=== PATIENT | female | born 1975 | race Caucasian/White ===

== ENCOUNTER 2023-09-09 11:42 | Emergency (ER) | payer MEDICAID, SELFPAY ==
--- NOTE | ~2023-09-09 | XR_ITS ---
EXAMINATION: XR TIBIA AND FIBULA, LEFT CLINICAL INFORMATION: Pain following a fall. COMPARISON: None available. TECHNIQUE: AP and lateral views of the left tibia and fibula were obtained. FINDINGS: No acute fracture or dislocation. No joint space or marginal osteophytes. No osseous erosion or periosteal reaction. Circumferential subcutaneous edema. XR/XR tibia fibula LT 2V IMPRESSION: Circumferential subcutaneous edema without acute osseous abnormality.
[2023-09-09 11:46] VITALS: BP 128/67; PULSE 95; O2SAT 100
--- NOTE | 2023-09-09 11:46 | ED.GENADULT ---
HPI - General Adult General Chief complaint: Extremity Injury, Lower Stated complaint: FALL DOWN 3 STEPS T-1,R LEG PAIN PER EMS Time Seen by Provider: 09/09/23 14:34 Source: patient and EMS Mode of arrival: EMS Limitations: no limitations History of Present Illness HPI narrative: Patient is a 48 year old assigned female at with no reported medical history presenting to the emergency department today with left lower leg pain. Patient states that she fell down some stairs yesterday and ever since, her left leg has been bothering her. Patient denies any head strike, loss of consciousness, dizziness, lightheadedness, abdominal pain, nausea, vomiting, fever, chills, blurry vision, double vision, loss of vision, chest pain, difficulty breathing, shortness of breath, back pain, night sweats, pain with urination, increased urinary frequency, increased urinary urgency, blood in her urine or stool, syncope or a near syncopal episode, bowel incontinence, bladder incontinence, bowel retention, bladder retention, or any other complaints at this time. Onset (ago): day(s) (1) Location: left and lower extremity Severity: mild Severity scale (1-10): 4 Quality: aching and dull Pain Consistency: constant Relieving factors: none Exacerbating factors: movement and other (walking) Associated symptoms: denies other symptoms Treatments prior to arrival: none Related Data Allergies Allergy/AdvReac Type Severity Reaction Status Date / Time metoclopramide [From Reglan] Allergy Unknown Verified 09/09/23 12:22 Review of Systems Constitutional: Constitutional: Reports no additional constitutional complaints, Denies chills, Denies fever(s) and Denies night sweats Eyes: Eyes: Reports no additional eye complaints, Denies blurry vision, Denies change in vision, Denies diplopia, Denies eye discharge, Denies loss of vision and Denies eye pain ENT: Denies dizziness Cardiovascular: Cardiovascular: Reports no additional cardiovascular complaints, Denies chest pain, Denies lightheadedness, Denies Loss of Consciousness and Denies dyspnea Respiratory: Respiratory: Reports no additional respiratory complaints and Denies dyspnea Gastrointestinal: Gastrointestinal: Reports no additional gastrointestinal complaints, Denies abdominal pain, Denies melena, Denies hematochezia, Denies change in bowel habits and Denies change in stool character Genitourinary: Genitourinary: Denies hematuria, Denies urinary frequency, Denies dysuria, Denies urinary incontinence, Denies urinary hesitancy and Denies urinary urgency Musculoskeletal: Musculoskeletal: Reports no additional musculoskeletal complaints, Denies numbness and Denies tingling Comments: left lower leg pain and swelling Neurologic: Denies dizziness, Denies loss of vision, Denies numbness and Denies tingling Psychiatric: Psychiatric: Reports no additional psychiatric complaints Endocrine: Endocrine: Reports no additional endocrine complaints Hematologic/Lymphatic: Hematologic/Lymphatic: Reports no additional hematologic/lymphatic complaints Allergic/Immunologic: Allergic/Immunologic: Reports no additional allergic/immunologic complaints [facility] Past Medical History Attestation statement: The following information was validated with the patient. Source: old records reviewed and nursing notes reviewed Social History Social History Advance Directives: No Advance Directives Information Provided: No Physical Exam ED Vital Signs: Vital Signs - 24 hr 09/09/23 12:22 09/09/23 14:00 09/09/23 16:10 Temperature 98.1 F 98.2 F 98.2 F Pulse Rate 99 98 98 Respiratory Rate 16 16 Blood Pressure 142/74 H 147/73 H 147/73 H Pulse Oximetry 100 99 99 Oxygen Delivery Method Room Air Room Air Room Air BMI result Body Mass Index 30.2 Const General: cooperative, no acute distress, alert and awake Nutritional Appearance: well nourished Orientation/consciousness: patient oriented x3 Limitations: no limitations [facility] Head: Yes normal to inspection and Yes atraumatic Ears: hearing grossly normal bilaterally and external ears normal General nose exam: Normal external nose present, no nasal discharge noted and no epistaxis Face and sinus: Yes normal facial exam, No abrasion and No laceration Mouth: Normal oral and palatal mucosa present, no drooling and no muffled voice Eyes General: appearance normal, both eyes and all related structures Periorbital: periorbital findings normal Eyelids: Yes eyelids normal Conjunctivae: conjunctivae normal Pupils: Equal, round and reactive pupils present EOM: EOMs intact bilaterally Neck Neck: Yes normal visual inspection, Yes full ROM and Yes no lymphadenopathy Chest Chest palpation & inspection: normal inspection of the chest Resp Effort & Inspection: normal respiratory effort and able to speak in complete sentences GI Inspection: Yes normal to inspection Neuro General: patient oriented x3 and moves all extremities Cranial nerves: Yes Equal, round and reactive pupils present Cognition (Neuro): normal cognition Motor exam (neuro): 5/5 motor strength present throughout Sensory Exam: Normal double simultaneous stimulation for sensation Coordination: [id number] test normal Extrem Other: mild erythema present to the left lower leg and pain with palpation present of the left lower leg General: Yes full ROM and Yes capillary refill normal Psych Appearance: grossly normal Mental Status: mental status grossly normal Affect: normal affect Attitude: cooperative Thought process: Normal thought process present Thought content: Normal thought content present Insight: Good insight present (Psych) Course Course Course Narrative: This is a rapid medical exam performed by Ortiz Ely NP: Additional HPI, ROS, PE not included below will be deferred to primary provider. Patient is a 48-year-old female presenting to the ED with complaint of left leg pain since yesterday. States she fell down 3 steps running from a bee yesterday. Pain to lower leg, worse with ambulating. Plan: xray Medications Administered Discontinued Medications Generic Name Dose Route Start Last Admin Trade Name Donita PRN Reason Stop Dose Admin Oxycodone HCl 5 mg 09/09/23 15:37 09/09/23 15:50 Oxycodone Hcl Immed Release 5 Mg Tablet PO 09/09/23 15:38 5 mg ONCE ONE Administration Procedures Orthopedic Splinting/Casting Injury #1: Side: left Lower Extremity Injury Location: lower leg Lower Extremity Immobilizer: boot orthosis Other Orthopedic Equipment: crutches Medical Decision Making Medical Decision Making MDM Narrative: Patient is a 48 year old assigned female at with no reported medical history presenting to the emergency department today with left lower leg pain after a fall. Patient's physical exam showed mild swelling to the left lower leg as well as pain with palpation. Patient stated that she could not remove the pants she was in to allow me further evaluation of the lower leg. Patient's left lower leg x-ray showed no acute rolanda process but did confirm soft tissue swelling. Patient's clinical presentation is most consistent with a lower leg contusion vs. sprain/strain. I explained my physical exam findings as well as all test results to the patient. I answered all questions asked by the patient. Patient received PO pain medication while in the department. Patient's left lower extremity was placed in a walking boot, to help ease the pain of putting pressure on it, and the patient was given crutches with crutch instructions. Patient's PMS was intact prior to and after boot placement. I stressed the importance of the patient taking her medication as prescribed. I stressed the importance of the patient following up with her primary care provider and if pain persists >1 week, an orthopedic provider. I stressed the importance of the patient returning to the emergency department immediately if her symptoms were to worsen or if she were to develop any dizziness, shortness of breath, difficulty breathing, chest pain, blurry vision, loss of vision, nausea, vomiting, abdominal pain, fever, chills, back pain, or any other complaints. Patient verbalized agreement and understanding with this treatment plan and discharge. Differential Diagnosis Differential Diagnoses: The differential diagnosis associated with the presentation includes Leg sprain Leg strain Leg contusion Tibia fracture Fibular fracture Admission/Observation Consideration of admission/observation: Escalation of care including admission/observation considered Patient would have been admitted to the hospital had her work up had any findings where hospital admission was appropriate and her clinical presentation warranted hospital admission. Independent Interpretation I performed an independent interpretation of an: Plain X-Ray Interpretation: My interpretation is in agreement with the radiologist's impression of this imaging study. EXAMINATION: XR TIBIA AND FIBULA, LEFT CLINICAL INFORMATION: Pain following a fall. COMPARISON: None available. TECHNIQUE: AP and lateral views of the left tibia and fibula were obtained. FINDINGS: No acute fracture or dislocation. No joint space or marginal osteophytes. No osseous erosion or periosteal reaction. Circumferential subcutaneous edema. XR/XR tibia fibula LT 2V IMPRESSION: Circumferential subcutaneous edema without acute osseous abnormality. Dictated By: Wesley Tsai MD Signed By: Electronically signed by Wesley Tsai MD 09/09/23 1344 Radiology Impression Discussion of test interpretation with radiology: I have reviewed the radiologist's reading. Independent Historian Clinical information obtained from an independent historian. History obtained from or confirmed by: EMS (EMS provided additional history and confirmed the history provided by the patient.) Tests considered The following testing was considered but not selected: A CT scan and an US of the left lower extremity were considered however, given the patient's clinical presentation and mechanism of injury, neither of these were warranted. I discussed this with the patient who verbalized understanding and agreement. Discharge Plan Discharge Clinical Impression: Acute leg pain, Sprain of knee/leg Patient Disposition: Home, Self-Care Instructions: Crutch Instructions (ED), Leg Pain (ED) Additional Instructions: Follow up with your primary care provider and an orthopedic doctor in 1 week if the pain is not improving. Return to the emergency department immediately if your symptoms worsen or if you develop any dizziness, shortness of breath, difficulty breathing, chest pain, blurry vision, loss of vision, nausea, vomiting, abdominal pain, fever, chills, back pain, or any other complaints. Referrals: [facility] [Provider Group] (Call to establish and follow up with an orthopedic provider if your symptoms do not resolve in 1 week. ) [facility] [Primary Care Provider] - Stand Alone Forms: Work/School Release Interventions: ED Discharge Assessment Last Done: 09/09/23 16:10 Discharge Date/Time: 09/09/23 16:10 Print Language: French
[2023-09-09 12:22] VITALS: BP 142/74; PULSE 99; RESP 16; TEMP 36.7; O2SAT 100; BMI 30.2
[2023-09-09 14:00] VITALS: BP 147/73; PULSE 98; TEMP 36.8; O2SAT 99
[2023-09-09] MEDS: oxyCODONE HCl Immed Release 5 MG TABLET PO (15:50)
[2023-09-09 16:10] VITALS: BP 147/73; PULSE 98; RESP 16; TEMP 36.8; O2SAT 99
== END 2023-09-09 16:10 | disposition home or self-care (01) ==
PROVIDERS: Emergency Provider Emergency Medicine
DX: S83.92XA Sprain of unspecified site of left knee, initial encounter (principal); X58.XXXA Exposure to other specified factors, initial encounter; Y93.9 Activity, unspecified; Y92.9 Unspecified place or not applicable; Y99.9 Unspecified external cause status; M79.662 Pain in left lower leg
CPT/HCPCS: 73590; 99283

== ENCOUNTER 2023-09-28 12:36 | Outpatient (REF) | payer MEDICAID, SELFPAY ==
--- NOTE | ~2023-09-28 | XR_ITS ---
EXAMINATION: XR KNEE, LEFT CLINICAL INFORMATION: Pain in left knee COMPARISON: None available. TECHNIQUE: AP standing view both knees, lateral and sunrise view of the left knee. FINDINGS: No fracture. Left joint effusion is noted. There is left lateral patellar tilt. Small quadriceps enthesophyte extends off the left patella. The medial and lateral joint compartments are well-maintained. Marginal osteophytes are seen along the medial and lateral joint compartments of the right knee. XR/XR knee LT 3V IMPRESSION: 1. Left joint effusion. 2. Left lateral patellar tilt.
== END 2023-09-28 12:37 | disposition home or self-care (01) ==
LOC: HO.HOSX 12:36
PROVIDERS: Visit Provider Physician Assistant
DX: M76.52 Patellar tendinitis, left knee (principal)
CPT/HCPCS: 73562; 99212

== ENCOUNTER 2023-09-28 13:20 | Outpatient (AMB) | payer MEDICAID, SELFPAY ==
--- NOTE | 2023-09-28 13:33 | A.OFFVIS_ITS ---
Vital Signs 09/28/23 13:46 Height 5 ft 4 in Weight 176 lb BMI 30.2 Intake Visit Reasons: N/P left Acute leg pain, Sprain of knee Intake Note: Gabriela a 48 year old female who presents today as a new patient for an evaluation of left leg pain, DOI 09/08/23. Patient reports she was running from a bee when she missed 3 steps landing her full weight on her left leg. She presented to [facility] the following day where she was placed in a walking boot. She d/c use of her boot due to extra discomfort after her swelling went down. Currently her pain is located near the medial aspect of knee. States with stair use she has to take one step out of time. Numbness and tingling in her toes. Finds no relief with Tylenol and Motrin. Allergies metoclopramide [From Reglan] Allergy (Verified 09/28/23 13:54) Unknown HPI HPI N/P left Acute leg pain, Sprain of knee: Details: 48-year-old female who presents to the office today for evaluation of acute left knee injury after she missed 3 steps and landed full weight on her left leg, 09/08/23. She was seen at ER the following day where she was placed in a walking boot that she discontinued due to extra discomfort after her swelling went down. She currently states she has burning sensation and pain at the medial aspect of her knee that radiates to her leg. Her pain is aggravated with extending, lifting and she has to take one step at a time with stair use. She also reports numbness and tingling in her toes. She denies any instability or knee giving out. She finds no relief with Tylenol and Motrin. [facility] Surgical History (Updated 09/28/23 @ 13:44 by DAVID Whaley) Hx of gastric bypass Social History (Updated 09/28/23 @ 13:44 by DAVID Whaley) Patient Tobacco Use Status: Current everyday Tobacco user Current occupational status: unemployed Review of Systems Const All systems reviewed & are unremarkable except as noted in HPI and below Physical Exam Vital Signs: BMI result Body Mass Index 30.2 Const General: cooperative, healthy appearing, comfortable, no acute distress, well developed and alert Orientation/consciousness: patient oriented x3 HEENT Head: Yes normal to inspection, Yes normocephalic and Yes atraumatic Eyes General: appearance normal, both eyes and all related structures Resp Effort & Inspection: normal respiratory effort and able to speak in complete sentences Cardio Rate: regular rate Peripheral pulses: Peripheral pulses 2+ throughout GI Palpation (GI): Soft to palpation Skin Lesions: no lesions Rashes: no rashes Neuro General: patient oriented x3 Extrem Other: Left knee: Skin intact, no erythema or joint effusion. Tenderness along the pes bursa and patellar tendon. Full ROM with crepitus. Negative Gricelda?s. No ligamentous laxity. NVI. Results Reviewed Results Reviewed: Xrays were obtained in the office today and personally reviewed by me of the left knee show lateralization of the patella. Assessment & Plan Assessment & Plan (1) Patellar tendinitis, left knee: Code(s): M76.52 - Patellar tendinitis, left knee Category: Medical Plan We discussed options which include PT, NSAIDs and injections. The patient will defer on the injection today and proceed with PT and NSAIDs. If symptoms pers ist, the patient will contact me for an injection, otherwise, PRN. Orders: Orders XR knee LT 3V Today M25.562 - Pain in left knee Medications: New ibuprofen 800 mg PO Q8H PRN 90 tabs 3RF pain 30 days S52.209D - Unspecified fracture of shaft of unspecified ulna, subsequent encounter for closed fracture with routine healing Patient Instructions: Scribed for Pineda Hoang PA-C, by Keenan Brown biomedical engineering internship, on 09/28/2023 at 1:15 PM EST.? I, Pineda Hoang PA-C, have personally reviewed and agree with the information entered by the scribe. Coding Level of Care Code New Pt Level 3 (91256) Diagnoses Patellar tendinitis, left knee M76.52
[2023-09-28 13:46] VITALS: BMI 30.2
== END 2023-09-28 15:04 | disposition home or self-care (01) ==
PROVIDERS: Visit Provider Physician Assistant
DX: M76.52 Patellar tendinitis, left knee (principal)
CPT/HCPCS: 99203

== ENCOUNTER 2025-02-21 12:43 | Outpatient (REF) | payer MEDICAID, SELFPAY ==
[2025-02-21 14:30] LABS: MANUAL DIFF FLAG NO
[2025-02-21 14:35] LABS: Hematocrit 30.5 % (37.0-47.0); Hemoglobin 8.7 g/dl (12.0-16.0); Imm Gran Abs Auto 0.03 X10*3/uL (0.00-0.03); Imm Gran Pct Auto 0.7 % (0.0-0.4); Lymphocytes Absolute Auto 1.3 X10*3/uL (1.2-4.9); Mean Corpuscular HGB Conc 28.5 g/dl (31.0-35.0); Mean Corpuscular Hemoglobin 21.1 pg (27.0-33.0); Mean Corpuscular Volume 73.8 fL (80.0-98.0); NRBC Abs Auto 0.000 X10*3/uL (0.0-0.012); NRBC Pct Auto 0.0 /100WBC (0.0-0.2); Platelet Count 217 X10*3/uL (160-400); Red Blood Count 4.13 X10*6/uL (4.20-5.50); White Blood Count 4.5 X10*3/uL (4.8-10.8)
[2025-02-21 14:47] LABS: Alanine Aminotransferase 20 U/L (0-31); Albumin Level 4.2 g/dL (3.5-5.0); Alkaline Phosphatase 90 U/L (39-117); Anion Gap 9 (12-20); Aspartate Amino Transferase 25 U/L (5-31); Blood Urea Nitrogen 13 mg/dL (9-16); Calcium 9.4 mg/dL (8.4-10.2); Carbon Dioxide 28 mmol/L (22-29); Chloride 108 mmol/L (96-108); Cholesterol 146 mg/dL (<200); Estimated Glomerular Filt Rate > 60; HDL Cholesterol 53 mg/dL (>40); Potassium 4.0 mmol/L (3.3-5.1); Sodium 141 mmol/L (135-145); Total Protein 6.7 g/dL (6.5-8.0); Triglycerides 62 mg/dL (<150)
[2025-02-22 08:36] LABS: HIV Num 1 0.06 S/CO (0.00-0.99); ~HepC Num1 0.07 S/CO (0.00-0.79); ~Hepatitis C Antibody Nonreactive (Nonreactive)
== END 2025-02-21 12:44 | disposition home or self-care (01) ==
LOC: HO.CHCLDS 12:43
PROVIDERS: Visit Provider Internal Medicine
DX: Z11.4 Encounter for screening for human immunodeficiency virus [HIV] (principal); Z11.59 Encounter for screening for other viral diseases; I10 Essential (primary) hypertension
CPT/HCPCS: 36415; 80053; 80061; 82306; 83036; 84443; 85025; 86803; 87389